=== PATIENT | male | born 1935 | race Caucasian/White ===

== ENCOUNTER 2016-11-01 23:14 | Observation (INO) | payer OTHER ==
[~2016-11-01] VITALS: Ht 175.3 cm; Wt 93.9 kg
[~2016-11-01 23:14] MED LIST: ASPIR 8181 M1 PO; Feosol PO; Lipitor PO; Norvasc PO; PRILOSEC40 MG PO; Vicodin,Norco 5/325 PO; Xarelto PO
[2016-11-02 00:07] LABS: HEMATOCRIT 39.5 % (38.0-50.0); MCHC 33.4 G/DL (30.0-36.0); MCV 89.8 FL (86-99); MEAN PLAT.VOLUME 9.4 uM^3 (9.0-12.4); PLATELET COUNT 140 K/uL (156-360); RBC DIS.WIDTH-CV 13.2 % (11.8-14.6); RBC DIS.WIDTH-SD 43.3 % (39-53); WHITE BLOOD COUNT 4.5 K/uL (4.1-10.2)
[2016-11-02 00:20] LABS: CHLORIDE 106 mEq/L (99-109); SODIUM 141 mEq/L (136-147)
[2016-11-02 00:22] LABS: GLUCOSE 117 mg/dL (70-99)
[2016-11-02 00:23] LABS: ANION GAP 8 MEQ/L (2-14)
[2016-11-02 00:26] LABS: GFR ESTIMATE (CALCULATED) > 59 mL/min/
[2016-11-02 00:27] LABS: UREA NITROGEN (BUN) 14 mg/dL (9-23)
[2016-11-02 00:33] LABS: TROP-I INTERPRETATION NEGATIVE; TROPONIN-I < 0.01 ng/mL (0.0-0.30)
[2016-11-02] MEDS ORDERED: PRILOSEC20 MG PO (01:37)
[2016-11-02] MEDS ORDERED: NORVASC5 MG PO (01:37)
[2016-11-02] MEDS ORDERED: GABAPENTIN300 MG PO (01:38)
[2016-11-02] MEDS ORDERED: CO Q-10100 MG PO (01:38)
[2016-11-02] MEDS ORDERED: VITAMIN D31000 UNIT PO (01:38)
[2016-11-02] MEDS ORDERED: LIPITOR20 MG PO (01:38)
[2016-11-02] MEDS ORDERED: ONE-A-DAY ESSE1 EAC1 PO (01:38)
[2016-11-02] MEDS ORDERED: [UNRECOGNIZED DRUG - OTHER] BOTH EYES (01:39)
[2016-11-02 02:09] LABS: D-DIMER ELISA 1.03 mg/L FEU (< 0.57); PTT 26.3 (25-32)
[2016-11-02 02:53] VITALS: BP 176/82
[2016-11-02 05:27] LABS: TROP-I INTERPRETATION NEGATIVE; TROPONIN-I < 0.01 ng/mL (0.0-0.30)
[2016-11-02 06:45] LABS: HDL CHOLESTEROL 45 MG/DL (Desirable>=40); LDL CHOLESTEROL 84 mg/dL (Desirable<100); NON-HDL CHOLESTEROL 97 mg/dL (Desirable<160); TOTAL CHOLESTEROL 142 mg/dL (Desirable<200); TRIGLYCERIDES 65 MG/DL (Normal: <150)
[2016-11-02 07:11] VITALS: BP 135/71
[2016-11-02 11:40] LABS: TROP-I INTERPRETATION NEGATIVE; TROPONIN-I < 0.01 ng/mL (0.0-0.30)
[2016-11-02] MEDS ORDERED: NITROSTAT0.4 MG SL (12:04)
[2016-11-02] MEDS ORDERED: AMLODIPINE BESY10 MG PO (12:05)
[2016-11-02 12:11] VITALS: BP 168/77
== END 2016-11-02 12:48 | disposition home or self-care (01) ==
LOC: EME 23:14 → EDOF 11-02 01:37 → 5WEST 11-02 02:42
PROVIDERS: Emergency Medicine; Physician Assistant Medical
DX: I35.0 Nonrheumatic aortic (valve) stenosis (principal); R07.9 Chest pain, unspecified; R06.02 Shortness of breath; R55 Syncope and collapse; I10 Essential (primary) hypertension; K21.9 Gastro-esophageal reflux disease without esophagitis; G43.909 Migraine, unspecified, not intractable, without status migrainosus; I25.2 Old myocardial infarction; I44.7 Left bundle-branch block, unspecified; I25.10 Atherosclerotic heart disease of native coronary artery without angina pectoris; E78.5 Hyperlipidemia, unspecified; G89.29 Other chronic pain; M54.9 Dorsalgia, unspecified; I71.4 Abdominal aortic aneurysm, without rupture; Z85.46 Personal history of malignant neoplasm of prostate; M19.90 Unspecified osteoarthritis, unspecified site; M35.3 Polymyalgia rheumatica; D69.6 Thrombocytopenia, unspecified; Z95.1 Presence of aortocoronary bypass graft; Z95.5 Presence of coronary angioplasty implant and graft
CPT/HCPCS: 71020; 71275; 80048; 80061; 84484; 85027; 85379; 85610; 85730; 93005; 99281; 99284; G0378; J1644